=== PATIENT | female | born 1980 | race Caucasian/White ===

== ENCOUNTER 2019-04-28 10:30 | Emergency (ER) | payer OTHER ==
[~2019-04-28] VITALS: Ht 157.5 cm; Wt 63.5 kg
[~2019-04-28 10:30] MED LIST: IBUPROFEN 800800 MG PO; NOHOMEMEDICATIONS; ZPAK PO
[2019-04-28 11:01] LABS: ABSOLUTE EOSINOPHILS 0.1 thou/uL (0.0-0.7); ABSOLUTE LYMPHOCYTES 1.7 thou/uL (0.8-5.3); ABSOLUTE MONOCYTES 0.5 thou/uL (0.0-1.2); ABSOLUTE NEUTROPHILS 4.4 thou/uL (1.6-8.1); BASOPHILS 0.7 %; HEMATOCRIT 39.8 % (37.0-47.0); HEMOGLOBIN 13.7 gm/dL (12.0-15.0); LYMPHOCYTES 24.4 %; MCH 33.9 pg (26.0-34.0); MCHC 34.4 g/dL (28.0-37.0); MCV 98.6 fL (80.0-100.0); MONOCYTES 7.6 %; MPV 7.4 fl. (7.2-11.1); NUCLEATED RBCS 0 /100WBC; PLATELET COUNT* 205 thou/uL (150-400); POLYS 65.3 %; RBC 4.04 mil/uL (4.20-5.00); RDW-CV 13.4 % (10.5-14.5); WBC 6.8 thou/uL (4.0-11.0)
[2019-04-28 11:11] LABS: CALCIUM 8.5 mg/dL (8.5-10.1); CREATININE 0.8 mg/dL (0.6-1.3)
[2019-04-28 11:15] LABS: ALBUMIN 4.2 g/dL (3.4-5.0); TOTAL BILIRUBIN 0.7 mg/dL (<0.1-1.0); TOTAL PROTEIN 7.9 g/dL (6.4-8.2)
[2019-04-28 12:20] LABS: URINE BILIRUBIN NEGATIVE (Negative); URINE BLOOD 1+ (Negative); URINE CLARITY CLEAR; URINE COLOR YELLOW; URINE GLUCOSE-RANDOM NEGATIVE (Negative); URINE KETONES NEGATIVE (Negative); URINE LEUKOCYTES-REFLEX NEGATIVE (Negative); URINE NITRITE-REFLEX NEGATIVE (Negative); URINE PROTEIN NEGATIVE (Negative); URINE SPECIFIC GRAVITY 1.025 (1.005-1.030); URINE UROBILINOGEN 0.2 E.U./dl (0.2-1.0)
[2019-04-28 12:26] LABS: BACTERIA-REFLEX 1-9 Few /HPF (None Seen); CASTS None Seen /LPF (None Seen); CRYSTALS None Seen /LPF (None Seen); MUCUS None Seen strn/LPF (None Seen); SQUAMOUS >10 Many /LPF (0-3); URINE RBC 3-10 Few /HPF (0-2); URINE WBC-REFLEX 0-5 Rare /HPF (0-5)
[2019-04-28] MEDS ORDERED: VISTARIL 25 MG25 M1 PO (12:29)
[2019-04-28 12:43] VITALS: BP 131/85
--- NOTE | 2019-04-28 16:41 | EKG ---
[place] [address] ELECTROCARDIOGRAM REPORT Name: ANAHI SONG Room: [facility]#: [id number] Admission: 04/28/19 Attend Phys: Discharge: 04/28/19 Date of : 82 Date of Service: 04/28/19 1039 Report #: [id number] THIS REPORT FOR: cc: VALENTINA - No family physician/PCP FAM - No family physician/PCP Shiv Alarcon MD [facility] ~ THIS REPORT FOR: //name// [facility] ED Test Date: 2019-04-28 Test Time: 10:39:59 Pat Name: ANAHI SONG Department: Room: Gender: F Staff Weapons Officer: : 1980 Requested By: Carmelo Garza Order Number: [id number] MD: Shiv Alarcon Measurements Intervals [place] Rate: 89 P: 34 HI: 121 QRS: 67 QRSD: 104 T: 53 QT: 385 QTc: 469 Interpretive Statements Sinus rhythm Atrial premature complex Compared to ECG 02/03/2016 01:30:55 Atrial premature complex(es) now present Electronically Signed On 04-28-2019 16:40:59 [employer] by Shiv Alarcon [email or web address] <ELECTRONICALLY SIGNED> By: Shiv Alarcon MD, FACC 04/28/19 1640 1039 1039 Shiv Alarcon MD, FAC /EPI
== END 2019-04-28 12:44 | disposition home or self-care (01) ==
LOC: M.ERS 10:30
PROVIDERS: Physician Assistant
DX: I10 Essential (primary) hypertension (principal); F41.9 Anxiety disorder, unspecified; F17.210 Nicotine dependence, cigarettes, uncomplicated; Z90.710 Acquired absence of both cervix and uterus; Z98.51 Tubal ligation status; Z85.41 Personal history of malignant neoplasm of cervix uteri